=== PATIENT | female | born 1995 | race Caucasian/White ===

== ENCOUNTER 2020-12-02 16:08 | Emergency (ER) | payer BC, OTHER ==
[~2020-12-02 16:08] MED LIST: CELEXA10 MG PO; COLACE 100MG C100 MG PO; GLUCOPHAGE500 MG PO; IBUPROFEN600 MG PO; LABETALOL HCL200 MG PO; LEVOCETIRIZINE D5 MG PO; MACROBID 100 M100 MG PO; MICROZIDE12.5 MG PO; NORCO 5-325 TA1 EACH PO; RANITIDINE HCL150 MG PO; SPIRONOLACTONE50 MG PO; VIT B12 PO; VIT D3 PO
[2020-12-02 18:16] LABS: HEMOGLOBIN 15.3 gm/dl (12.3-15.3); RED BLOOD COUNT 5.64 M/UL (4.00-5.10); WHITE BLOOD COUNT 5.7 K/UL (4.5-11.0)
[2020-12-02 18:49] LABS: BUN/CREATININE RATIO 17 (0-10)
[2020-12-02] MEDS ORDERED: PROVENTIL HFA6.7 GM INH (20:36)
== END 2020-12-02 20:59 | disposition home or self-care (01) ==
LOC: ER1 16:08
PROVIDERS: Physician Assistant Medical
DX: R05 Cough (principal); R50.9 Fever, unspecified; I10 Essential (primary) hypertension; Z86.16 Personal history of COVID-19
CPT/HCPCS: 71045; 80053; 83605; 85025; 99285